=== PATIENT | male | born 1995 | race American Indian/Alaskan Native ===

== ENCOUNTER 2022-05-25 14:49 | Emergency (ER) | payer SELFPAY ==
[2022-05-25] MEDS ORDERED: ACETAMINOPHEN W/CODEINE 300-30 MG TAB PO ONE (15:14)
[2022-05-25] MEDS ORDERED: KETOROLAC 10 MG TAB PO ONE (15:14)
[2022-05-25] MEDS ORDERED: BENZONATATE 100 MG CAP PO ONE (15:14)
[2022-05-25] MEDS ORDERED: predniSONE 20 MG TAB PO ONE (15:14)
--- NOTE | 2022-05-25 15:39 | Emergency Department Report ---
ED ENT HPI - General Chief complaint: Upper Respiratory Infection Stated complaint: CHEST PAIN Time Seen by Provider: 05/25/22 15:14 Source: patient Mode of arrival: Ambulatory Limitations: No Limitations - History of Present Illness Initial comments: 26-year-old black male with no past medical history presents to the emergency department for evaluation of 3-day history of cough. He states that he is coughed so much that whenever he coughs his body hurts. He denies fever, shortness of breath, chest pain, nausea, vomiting, dizziness, and diaphoresis. He states that he did take some nyjv-hqf-ibfjmox cough medication without improvement. He denies any sick contacts. complaint: other -: Gradual (Call), days(s) (3) Location: other (Chest) Severity: moderate Severity scale (0 -10): 6 Quality: aching Consistency: intermittent (Only when he coughs) Worsens with: movement, other (Palpation) Associated Symptoms: cough. denies: fever, gum swelling, toothache, pain with swallowing, sore throat, tinnitus, hearing loss, discharge from ear, rhinorrhea - Related Data Previous Rx's Medication Instructions Recorded Last Taken Type Benzonatate [Tessalon Perles] 100 mg PO Q8HR PRN #30 cap 05/25/22 Unknown Rx methylPREDNISolone [Medrol 4MG 4 mg PO DAILY #1 pack 05/25/22 Unknown Rx DOSEPAK (21 tabs)] Allergies Allergy/AdvReac Type Severity Reaction Status Date / Time No Known Allergies Allergy Unverified 05/25/22 14:55 ED Dental HPI - General Chief complaint: Upper Respiratory Infection Stated complaint: CHEST PAIN Time Seen by Provider: 05/25/22 15:14 Source: patient Mode of arrival: Ambulatory Limitations: No Limitations - Related Data Previous Rx's Medication Instructions Recorded Last Taken Type Benzonatate [Tessalon Perles] 100 mg PO Q8HR PRN #30 cap 05/25/22 Unknown Rx methylPREDNISolone [Medrol 4MG 4 mg PO DAILY #1 pack 05/25/22 Unknown Rx DOSEPAK (21 tabs)] Allergies Allergy/AdvReac Type Severity Reaction Status Date / Time No Known Allergies Allergy Unverified 05/25/22 14:55 ED Review of Systems ROS: Stated complaint: CHEST PAIN Other details as noted in HPI Comment: All other systems reviewed and negative Constitutional: denies: chills, fever Eyes: denies: eye pain, vision change ENT: congestion. denies: throat pain Respiratory: cough. denies: shortness of breath, SOB with exertion, stridor, wheezing Cardiovascular: chest pain. denies: palpitations, dyspnea on exertion Gastrointestinal: denies: abdominal pain, nausea, vomiting Genitourinary: denies: urgency, dysuria Musculoskeletal: denies: back pain Skin: denies: rash, lesions Neurological: denies: headache, weakness ED Past Medical Hx - Past Medical History Previous Medical History?: No - Surgical History Past Surgical History?: No - Medications Home Medications: Home Medications Medication Instructions Recorded Confirmed Last Taken Type Benzonatate [Tessalon Perles] 100 mg PO Q8HR PRN #30 cap 05/25/22 Unknown Rx methylPREDNISolone [Medrol 4MG 4 mg PO DAILY #1 pack 05/25/22 Unknown Rx DOSEPAK (21 tabs)] ED Physical Exam - General Limitations: No Limitations General appearance: alert, in no apparent distress - Head Head exam: Present: atraumatic, normocephalic - Eye Eye exam: Present: normal appearance. Absent: conjunctival injection, periorbital swelling, periorbital tenderness - ENT ENT exam: Present: TM's normal bilaterally, normal external ear exam. Absent: normal exam (Bilateral nasal mucosal edema), normal orophraynx (Erythema noted to posterior oropharynx) - Neck Neck exam: Present: normal inspection. Absent: tenderness, lymphadenopathy - Respiratory Respiratory exam: Present: normal lung sounds bilaterally, chest wall tenderness. Absent: respiratory distress, wheezes, rales, rhonchi, stridor - Cardiovascular Cardiovascular Exam: Present: regular rate, normal heart sounds - GI/Abdominal GI/Abdominal exam: Present: soft, normal bowel sounds. Absent: distended, tende rness, guarding, rebound, rigid - Extremities Exam Extremities exam: Present: normal inspection, normal capillary refill. Absent: pedal edema, joint swelling, calf tenderness - Back Exam Back exam: Present: normal inspection. Absent: CVA tenderness (R), CVA tenderness (L), vertebral tenderness - Neurological Exam Neurological exam: Present: alert, oriented X3, CN II-XII intact, normal gait, reflexes normal. Absent: motor sensory deficit - Psychiatric Psychiatric exam: Present: normal affect, normal mood - Skin Skin exam: Present: warm, dry, intact, normal color ED Course Vital Signs 05/25/22 05/25/22 14:58 16:45 Temperature 98.3 F 97.8 F Pulse Rate 68 78 Respiratory 18 16 Rate Blood Pressure 131/85 Blood Pressure 128/80 [Right] O2 Sat by Pulse 100 100 Oximetry ED Medical Decision Making - Medical Decision Making 26-year-old black male with no past medical history presents to the emergency department for evaluation of 3-day history of cough. He states that he is coughed so much that whenever he coughs his body hurts. He denies fever, shortness of breath, chest pain, nausea, vomiting, dizziness, and diaphoresis. He states that he did take some pxrn-[id number] cough medication without improvement. He denies any sick contacts. Physical exam unremarkable. Patient will be treated with Medrol Dosepak and Tessalon Perles to use as directed. He is advised to follow-up with his primary care provider if no improvement or worsening symptoms or return to the emergency department if he develops fever or shortness of breath. He verbalizes understanding of and agreement with plan of care. Critical care attestation.: If time is entered above; I have spent that time in minutes in the direct care of this critically ill patient, excluding procedure time. ED Disposition Clinical Impression: URI with cough and congestion Disposition: 01 HOME / SELF CARE / HOMELESS Is pt being admited?: No Does the pt Need Aspirin: No Condition: Stable Instructions: Upper Respiratory Infection, Adult, [id number] Additional Instructions: Take medications as prescribed. Follow-up with primary care provider if no improvement or worsening symptoms. Return to the emergency department as needed. Prescriptions: methylPREDNISolone [Medrol 4MG DOSEPAK (21 tabs)] 4 mg PO DAILY #1 pack Benzonatate [Tessalon Perles] 100 mg PO Q8HR PRN #30 cap PRN Reason: Cough Referrals: YANI ENGLISH MD [Staff Physician] - 3-5 Days Forms: Work/School Release Form(ED) Time of Disposition: 15:39
[2022-05-25 16:46] VITALS: BP 128/80
== END 2022-05-25 18:30 | disposition home or self-care (01) ==
LOC: ED 14:49
DX: J06.9 Acute upper respiratory infection, unspecified (principal); R05.9 Cough, unspecified; R68.89 Other general symptoms and signs
CPT/HCPCS: 99282